=== PATIENT | male | born 1955 | race Caucasian/White ===

== ENCOUNTER 2019-05-20 11:21 | Day surgery (SDC) | payer OTHER, MEDICARE ==
[~2019-05-20] VITALS: Ht 177.8 cm; Wt 97.5 kg
[2019-05-20] MEDS ORDERED: ONDANSETRON HCL 4 MG/2 ML VIAL IVP PRN (12:15)
[2019-05-20] MEDS ORDERED: fentaNYL CITRATE/PF 100 MCG/2 ML AMP IVP PRN ×2 (12:15)
[2019-05-20] MEDS ORDERED: WATER FOR IRRIGATION,STERILE 1,000 ML IRRIG.SOLN IR ONE (13:10)
[2019-05-20] MEDS ORDERED: PROPOFOL 200MG/ 20ML VIAL (DIPRIVAN) IV ONE (13:10)
[2019-05-20] MEDS ORDERED: DEXAMETHASONE SOD PHOSPHATE 4 MG/ML VIAL IVP ONE (13:10)
[2019-05-20] MEDS ORDERED: ONDANSETRON HCL 4 MG/2 ML VIAL IVP ONE (13:10)
[2019-05-20] MEDS ORDERED: MIDAZOLAM HCL 5 MG/5 ML VIAL IVP ONE (13:10)
[2019-05-20] MEDS ORDERED: LIDOCAINE/EPI 1% 1:100000 20 ML VIAL INJ ONE (13:10)
[2019-05-20] MEDS ORDERED: NS IRRIG SOLN 1000 ML IR ONE (13:10)
[2019-05-20] MEDS ORDERED: fentaNYL CITRATE/PF 100 MCG/2 ML AMP IVP ONE (13:10)
[2019-05-20] MEDS ORDERED: SEVOFLURANE 15 MIN GAS INH ONE (13:10)
[2019-05-20] MEDS ORDERED: LR 1,000 ML IV.SOLN IV ONE (13:10)
[2019-05-20] MEDS ORDERED: ROCURONIUM BROMIDE 10 MG/ML (ZEMURON) IV ONE (13:10)
[2019-05-20] MEDS ORDERED: hydrALAZINE HCL 20 MG/ML VIAL IVP ONE (14:45)
[2019-05-20] MEDS ORDERED: hydrALAZINE HCL 20 MG/ML VIAL ONE (14:59)
[2019-05-20 16:16] VITALS: BP_SYST 138
== END 2019-05-20 16:10 | disposition home or self-care (01) ==
LOC: SDS 11:21 → SMU 11:23 → SDS 16:10
PROVIDERS: ATTEND Otolaryngology
DX: J34.89 Other specified disorders of nose and nasal sinuses (principal); J34.2 Deviated nasal septum; J31.0 Chronic rhinitis; D38.5 Neoplasm of uncertain behavior of other respiratory organs; I10 Essential (primary) hypertension; Z80.3 Family history of malignant neoplasm of breast; Z90.89 Acquired absence of other organs
CPT/HCPCS: 30140; 30520; 88304; 88311; J0360; J1100; J2250; J2405; J2704; J3010; J7120